=== PATIENT | female | born 1955 | race Caucasian/White ===

== ENCOUNTER 2020-10-08 19:29 | Inpatient (IN) | payer BC ==
[~2020-10-08] VITALS: Ht 170.2 cm; Wt 64.9 kg
[2020-10-08] MEDS ORDERED: XANAX2 MG PO (19:36)
[2020-10-08] MEDS ORDERED: ZANAFLEX4 MG PO (19:36)
[2020-10-08] MEDS ORDERED: NORVASC5 MG PO (19:36)
[2020-10-08] MEDS ORDERED: NORVASC2.5 MG PO (19:36)
[2020-10-08] MEDS ORDERED: CYMBALTA20 MG PO (19:37)
[2020-10-08 19:53] LABS: BILIRUBIN NEGATIVE (NEGATIVE); KETONE NEGATIVE (NEGATIVE); NITRITE NEGATIVE (NEGATIVE); UROBILINOGEN NORMAL mg/dL (< 2)
[2020-10-08 20:06] LABS: BASOPHILS 1.4 % (0-2); EOSINOPHILS 1.1 % (0-7); HEMOGLOBIN 13.7 g/dL (12-16); LYMPHOCYTES 27.1 % (15-50); MCH 30.5 pg (26.0-34.0); MCHC 33.4 g/dL (31.0-37.0); MCV 91.6 fL (80.0-100.0); MEAN PLATELET VOLUME 6.8 fL (7.4-10.4); MONOCYTES 7.1 % (2-11); NEUTROPHILS 63.3 % (40-80); PLATELET COUNT 526 10x3/uL (130-400); RBC 4.48 10x6/uL (4.00-5.40); RDW 13.5 % (11.5-14.5); WBC 10.7 10x3/uL (4.8-10.8)
[2020-10-08 20:15] LABS: CALC OSMOLALITY 256 mosm/kg (275-300); CALCIUM 8.9 mg/dL (8.5-10.1); CARBON DIOXIDE 27.6 mmol/L (21.0-32.0); CHLORIDE - SERUM 93 mmol/L (98-107); CREATININE - SERUM 0.8 mg/dL (0.6-1.3); GLUCOSE 102 mg/dL (74-106); POTASSIUM - SERUM 3.4 mmol/L (3.5-5.1); SODIUM 129 mmol/L (136-145); UREA NITROGEN 7 mg/dL (7-18); eGFR NON AFRICAN AMERICAN 77 mL/min (90-120)
[2020-10-08 20:20] LABS: ALBUMIN 3.7 g/dL (3.4-5.0); ALKALINE PHOSPHATASE 86 U/L (30-120); ALT (SGPT) 20 U/L (10-68); AMYLASE - SERUM 26 U/L (25-115); BILIRUBIN - TOTAL 0.32 mg/dL (0.2-1.3); LIPASE 159 U/L (73-393); PROTEIN - SERUM 7.3 g/dL (6.4-8.2)
[2020-10-08 22:02] VITALS: BP 156/73
[2020-10-08 22:30] VITALS: BP 132/81
--- NOTE | 2020-10-08 22:43 | NUR ---
blanket provided for comfort. pt denies current needs. nad noted. remains on environmental monitoring specialist.
[2020-10-08 23:00] VITALS: BP 143/80
[2020-10-08 23:30] VITALS: BP 131/72
[2020-10-09 01:00] VITALS: BMI 22.4
[2020-10-09 05:37] LABS: BASOPHILS 1.2 % (0-2); EOSINOPHILS 2.2 % (0-7); HEMATOCRIT 43.1 % (36.0-48.0); HEMOGLOBIN 13.9 g/dL (12-16); LYMPHOCYTES 29.1 % (15-50); MCH 30.1 pg (26.0-34.0); MCHC 32.3 g/dL (31.0-37.0); MCV 93.4 fL (80.0-100.0); MEAN PLATELET VOLUME 7.6 fL (7.4-10.4); MONOCYTES 7.8 % (2-11); NEUTROPHILS 59.7 % (40-80); RBC 4.62 10x6/uL (4.00-5.40); RDW 13.9 % (11.5-14.5)
[2020-10-09 05:38] LABS: PLATELET COUNT 376 10x3/uL (130-400)
[2020-10-09 05:46] LABS: APTT 23.7 SECONDS (22.8-39.4); INR 1.02 (0.85-1.17); PROTIME 12.3 SECONDS (11.6-15.0)
[2020-10-09 06:14] LABS: ALBUMIN 3.4 g/dL (3.4-5.0); ALKALINE PHOSPHATASE 86 U/L (30-120); ALT (SGPT) 19 U/L (10-68); BILIRUBIN - TOTAL 0.23 mg/dL (0.2-1.3); CALC OSMOLALITY 268 mosm/kg (275-300); CALCIUM 8.6 mg/dL (8.5-10.1); CARBON DIOXIDE 28.3 mmol/L (21.0-32.0); CHLORIDE - SERUM 102 mmol/L (98-107); CREATININE - SERUM 0.7 mg/dL (0.6-1.3); GLUCOSE 85 mg/dL (74-106); PHOSPHOROUS 4.6 mg/dL (2.5-4.9); PROTEIN - SERUM 6.6 g/dL (6.4-8.2); SODIUM 136 mmol/L (136-145); UREA NITROGEN 6 mg/dL (7-18); eGFR NON AFRICAN AMERICAN 90 mL/min (90-120)
[2020-10-09 09:04] VITALS: BP 101/53; BP 132/67
[2020-10-09 15:18] VITALS: BMI 22.4
[2020-10-09 18:30] VITALS: BP 115/55
[2020-10-09 19:58] VITALS: Ht 170.2 cm; Wt 64.9 kg
[2020-10-09 20:00] VITALS: BP 91/44
--- NOTE | 2020-10-09 21:30 | NUR ---
OR PERMITS SIGNED AND WITNESSED. RESP EVEN AND UNLABORED. AT BEDSIDE.
[2020-10-10] VITALS (14 sets, daily range): BP systolic 113–155; BP diastolic 55–74
[2020-10-10 06:18] LABS: BASOPHILS 0.9 % (0-2); EOSINOPHILS 0.9 % (0-7); HEMATOCRIT 37.5 % (36.0-48.0); HEMOGLOBIN 12.4 g/dL (12-16); LYMPHOCYTES 24.8 % (15-50); MCH 30.5 pg (26.0-34.0); MCHC 33.1 g/dL (31.0-37.0); MCV 92.1 fL (80.0-100.0); MEAN PLATELET VOLUME 7.4 fL (7.4-10.4); MONOCYTES 8.7 % (2-11); NEUTROPHILS 64.7 % (40-80); RBC 4.07 10x6/uL (4.00-5.40); RDW 13.7 % (11.5-14.5)
[2020-10-10 06:38] LABS: ALBUMIN 3.1 g/dL (3.4-5.0); ANION GAP 8.1 mmol/L (8-16); BILIRUBIN - TOTAL 0.25 mg/dL (0.2-1.3); CALCIUM 8.6 mg/dL (8.5-10.1); CARBON DIOXIDE 30.1 mmol/L (21.0-32.0); MAGNESIUM - SERUM 2.1 mg/dL (1.8-2.4); PROTEIN - SERUM 6.4 g/dL (6.4-8.2)
[2020-10-10 06:40] LABS: CREATININE - SERUM 0.9 mg/dL (0.6-1.3); PHOSPHOROUS 3.2 mg/dL (2.5-4.9); POTASSIUM - SERUM 4.2 mmol/L (3.5-5.1)
[2020-10-10 06:46] LABS: PLATELET COUNT 473 10x3/uL (130-400)
--- NOTE | 2020-10-10 08:45 | NUR ---
PT TRANSPORTED TO OR VIA BED AT THIS TIME
--- NOTE | 2020-10-10 11:32 | NUR ---
PT RETURNED FROM PACU VIA BED AT THIS TIME
[2020-10-11 04:00] VITALS: BP 106/82
[2020-10-11 06:20] LABS: BASOPHILS 0.8 % (0-2); EOSINOPHILS 0 % (0-7); HEMATOCRIT 36.5 % (36.0-48.0); HEMOGLOBIN 12.1 g/dL (12-16); LYMPHOCYTES 11.2 % (15-50); MCH 30.1 pg (26.0-34.0); MCV 91.2 fL (80.0-100.0); MEAN PLATELET VOLUME 7.6 fL (7.4-10.4); MONOCYTES 10.8 % (2-11); NEUTROPHILS 77.2 % (40-80); PLATELET COUNT 411 10x3/uL (130-400); RDW 13.6 % (11.5-14.5)
[2020-10-11 06:39] LABS: ALBUMIN 3.1 g/dL (3.4-5.0); ALKALINE PHOSPHATASE 67 U/L (30-120); BILIRUBIN - TOTAL 0.32 mg/dL (0.2-1.3); CALC OSMOLALITY 265 mosm/kg (275-300); CALCIUM 8.8 mg/dL (8.5-10.1); CARBON DIOXIDE 28.6 mmol/L (21.0-32.0); CHLORIDE - SERUM 99 mmol/L (98-107); CREATININE - SERUM 0.8 mg/dL (0.6-1.3); GLUCOSE 99 mg/dL (74-106); MAGNESIUM - SERUM 1.9 mg/dL (1.8-2.4); PHOSPHOROUS 2.6 mg/dL (2.5-4.9); POTASSIUM - SERUM 3.6 mmol/L (3.5-5.1); PROTEIN - SERUM 6.4 g/dL (6.4-8.2); SODIUM 134 mmol/L (136-145); UREA NITROGEN 6 mg/dL (7-18); eGFR NON AFRICAN AMERICAN 77 mL/min (90-120)
[2020-10-11 06:41] LABS: WBC 13.9 10x3/uL (4.8-10.8)
[2020-10-11 06:47] LABS: ALT (SGPT) 42 U/L (10-68)
[2020-10-11 08:51] VITALS: BP 157/77
--- NOTE | 2020-10-11 09:00 | NUR ---
ASSESSMENT PER FLOW SHEET. PATIENT IS WITHOUT DISTRESS. PATIENT DENIES NEEDS.CALL LIGHT IN REACH
[2020-10-11 12:37] VITALS: BP 130/50
[2020-10-11] MEDS ORDERED: TYLENOL W/CODEI1 TAB PO (16:41)
--- NOTE | 2020-10-11 17:29 | NUR ---
DISCHARGE INSTRUCTIONS,STATES UNDERSTANDING. IV DCD WITH CATH TIP INTACT.
--- NOTE | 2020-10-11 18:09 | OP ---
PATIENT NAME: POLI NIÑO MEDICAL RECORD: [id number] :59 LOCATION:[id number] ADMISSION DATE:10/08/20 SURGEON: JOAQUIN BEST MD DATE OF OPERATION: 10/10/2020 PREOPERATIVE DIAGNOSIS: Biliary dyskinesia. Also, CT evidence of early appendicitis. POSTOPERATIVE DIAGNOSES: Biliary dyskinesia. Also, CT evidence of early appendicitis with hepatomegaly. PROCEDURE: 1. Laparoscopic cholecystectomy. 2. Intraoperative cholangiography without immediate surgeon interpretation. 3. A 14-gauge core needle liver biopsies. SURGEON: Joaquin Best MD CORE JAVA ENGINEER: None. BLOOD LOSS: Minimal. ANESTHESIA: General. COMPLICATIONS: None. The risks, possible complications, and alternatives of the procedure were explained to the patient. She elects to proceed. INDICATION FOR THE LIVER BIOPSY: Hepatomegaly. OPERATIVE COURSE: The patient was conveyed to the operating room electively on 10/10/2020. General anesthesia was induced by the anesthesia staff. The abdomen was sterilely prepped and draped. An incision was accomplished within the umbilicus. I dissected down to a small incarcerated umbilical hernia. I cleaned the fascia from around the hernia defect sharply. Stay sutures of 0 Vicryl were placed on either side of the hernia defect. I then incised through the hernia defect and entered the peritoneal cavity bluntly. A 12-mm trocar was inserted. CO2 insufflation was begun. Once a sufficient pneumoperitoneum had been achieved, abdominal survey was undertaken. Three more trocars were inserted. These were 5 mm trocars. One was inserted in the right upper quadrant, one was inserted in the epigastrium and one was inserted in the left upper quadrant. During insertion of the Luis trocar and all trocars, there appeared to have been no injury to the bowels, any intraperitoneal or retroperitoneal structures. Under laparoscopic guidance, I percutaneously accessed the right upper quadrant utilizing a 14-gauge core biopsy device. Cores were obtained over the convexity of the liver. Biopsy sites were made hemostatic with electrocautery. The gallbladder was then grasped and retracted anteriorly. I advanced the cholangiogram trocar. I punctured the fundus of the gallbladder. I aspirated bile and injected dye. Under real time fluoroscopy, static fluoroscopic images were obtained. These static images are cholangiographic images, which were sent to the radiologist for interpretation. The cholangiogram trocar was removed. The gallbladder was grasped and retracted cephalad. The infundibulum was OPERATIVE REPORT [id number] RENAYPOLI grasped and retracted laterally. Blunt dissection was begun in the triangle of Calot. Once cystic artery and cystic duct were identified. These were clipped multiply and divided between clips. The gallbladder was then excised from its bed in the liver. It was placed within a bag retrieval device and was withdrawn through the umbilical fascial defect. 12 mm trocars were placed and the abdomen reinsufflated. I irrigated and aspirated in the right upper quadrant. There was no bleeding even at a low pressure of 8. Laith was added to the gallbladder fossa for additional hemostasis. Attention was then turned to the appendectomy. The appendix appeared normal. As I explained to the patient, even if the appendix was normal, we would still remove it in order to avoid diagnostic confusion in the future should the patient have a persistence or recurrence of abdominal pain. Additionally, there was CT evidence of early appendicitis. The appendix was grasped. Some retroperitoneal attachments to the appendix were taken down with a laparoscopic EnSeal device. A window was created in the mesoappendix. I took down the mesoappendix with a laparoscopic EnSeal device. I then stapled across the tip of the cecum with an Endo-FLORENCE type stapler utilizing a blue load. The appendix was placed within a bag retrieval device. It was withdrawn through the umbilical fascial defect. 12 mm trocars were placed and the abdomen reinsufflated. I irrigated and aspirated the right upper quadrant. There was no bleeding even at low pressure of 8. All trocars were removed and the abdomen desufflated. The umbilical fascial defect was closed with multiple interrupted 0 Vicryl sutures. The umbilical skin was approximated with interrupted 4-0 Vicryl Rapide sutures. The other skin incisions were closed with interrupted intracuticular 3-0 Vicryls. Benzoin and Steri-Strips were applied. The patient was then extubated and conveyed to post-anesthesia care unit. She was in stable condition. I will plan to keep her overnight and dismiss her home in the morning. TRANSINT:[id number] Voice Confirmation ID: [id number] DOCUMENT ID: [id number] JOAQUIN BEST MD at 1809 CC: [id number] DICTATION DATE: 10/10/201935 SPORTS PHYSICAL THERAPIST: 10/11/20 0006 DIS IN 10/11/20 [facility] [address] [place], [facility]
--- NOTE | 2020-10-11 19:14 | MORECARE ---
CASE MANAGEMENT DISCHARGE SUMMARY PATIENT: POLI NIÑO UNIT: [id number] ADM DATE: 10/08/20 AGE: 64 : 59 SEX: F ROOM/BED: D[facility] AUTHOR: SHMUEL,DOC PHYSICIAN: REFERRING PHYSICIAN: MITCHELL BLANCHARD MD DATE OF SERVICE: 10/11/20 Case Management Discharge Planning Summary DCP REVIEW SUMMARY ANTICIPATED D/C DATE: EXPECTED LOS : CASE STATUS: DCP Initiated INITIAL REVIEW: 10/08/2020 INITIAL REVIEWER: Oksana Lindquist FINAL DISCHARGE DISPOSITION: 01 : Home or Self Care (Routine Discharge) FINAL REVIEWER: Oksana Lindquist FINAL REVIEW DATE: DCP Focus Questions & Answers QUESTION: ANSWER : PATIENT: POLI NIÑO ENCOUNTER: [id number] MEDICAL RECORD#: [id number] ADMISSION DATE: 10/08/2020 DISCHARGE DATE: 10/11/2020 ATTENDING MD: MITCHELL SANDOVAL : AGE: 64 MARITAL STATUS: M DC PLAN ID: [id number] FACILITY: [facility] PRINTED ON: 10/11/20 19:14 CT All edits/amendments must be made on the electronic document DICTATION DATE: 10/11/201913 SENIOR CONSULTING MANAGER: NIXON 10/11/201913 RPT#: [id number] DC DATE:10/11/20 STATUS: DIS IN [facility] [address] [place] [address] END OF REPORT
--- NOTE | 2020-10-11 19:46 | MORECARE ---
CASE MANAGEMENT DISCHARGE SUMMARY PATIENT: POLI NIÑO UNIT: [id number] ADM DATE: 10/08/20 AGE: 64 : 59 SEX: F ROOM/BED: D.2213 AUTHOR: SHMUEL,DOC PHYSICIAN: REFERRING PHYSICIAN: MITCHELL BLNACHARD MD DATE OF SERVICE: 10/11/20 Case Management Discharge Planning Summary COMMENTS ENTERED DATE: 10/11/20 19:41 CT COMMENT TYPE: Discharge Planning REVIEWER: Oksana Lindquist CM met with patient she lives at home with spouse. Patient denies any need for DME or HHS. at bedside. Patient denies any d/c needs. CM will continue to follow and assist as needed with discharge planning. DCP REVIEW SUMMARY ANTICIPATED D/C DATE: EXPECTED LOS : CASE STATUS: DCP Initiated INITIAL REVIEW: 10/08/2020 INITIAL REVIEWER: Oksana Lindquist FINAL DISCHARGE DISPOSITION: 01 : Home or Self Care (Routine Discharge) FINAL REVIEWER: Oksana Lindquist FINAL REVIEW DATE: DCP Focus Questions & Answers DCP Evaluation QUESTION: ANSWER Patient's current cognitive status: : *Oriented to person, place, situation, time and present Patient's ability to cope with chronic illness : d. No chronic illness Living Arrangements: : Home with Spouse/Significant Other Patient with capacity for self-care or can be cared for in same environment as prior to hospitalization? : Yes Medication Management: : Patient states can read and understand medication labels Pharmacy name(s): : [facility] Does Patient have transportation to get home and to follow-up medical appointments when discharged from the hospital? : Yes Would patient like to participate in any Care Coordination programs (if applicable): : Not applicable Does the patient have electricity at home? : Yes Does the patient have running water in their house? : Yes Equipment in use: : None Mental health screen: : No mental health history DCP Re-evaluation QUESTION: ANSWER Would patient like to participate in any Care Coordination programs (if applicable): : Not applicable PATIENT: POLI NIÑO ENCOUNTER: [id number] MEDICAL RECORD#: [id number] ADMISSION DATE: 10/08/2020 DISCHARGE DATE: 10/11/2020 ATTENDING MD: MITCHELL SANDOVAL : AGE: 64 MARITAL STATUS: M DC PLAN ID: [id number] FACILITY: [facility] PRINTED ON: 10/11/20 19:46 CT All edits/amendments must be made on the electronic document DICTATION DATE: 10/11/201945 HEMSTITCHING MACHINE OPERATOR: NIXON 10/11/201945 RPT#: [id number] DC DATE:10/11/20 STATUS: DIS IN [facility] [address] [place] [address] END OF REPORT
== END 2020-10-11 17:29 | disposition home or self-care (01) | DRG 357 ==
LOC: D.ER 19:29 → D.MS 23:53
PROVIDERS: Family Medicine; Surgery; ADMIT Emergency Medicine; ATTEND Emergency Medicine
PROC: 0FT44ZZ Resection of Gallbladder, Percutaneous Endoscopic Approach (ICD-10-PCS; principal; 2020-10-10 09:00)
PROC: BF131ZZ Fluoroscopy of Gallbladder and Bile Ducts using Low Osmolar Contrast (ICD-10-PCS; 2020-10-10 09:00)
PROC: 0FB03ZX Excision of Liver, Percutaneous Approach, Diagnostic (ICD-10-PCS; 2020-10-10 09:00)
DX: K35.80 Unspecified acute appendicitis (principal); E87.1 Hypo-osmolality and hyponatremia; K82.8 Other specified diseases of gallbladder; I10 Essential (primary) hypertension; F41.8 Other specified anxiety disorders; F17.200 Nicotine dependence, unspecified, uncomplicated; E87.6 Hypokalemia; R19.7 Diarrhea, unspecified